=== PATIENT | male | born 1950 | race Caucasian/White ===

== ENCOUNTER → 2018-08-31 | Outpatient (CLI) | payer MEDICARE | END | disposition home or self-care (01) | LOC: CVU 07:46 | PROVIDERS: ATTEND Internal Medicine Cardiovascular Disease | DX: I25.10 Atherosclerotic heart disease of native coronary artery without angina pectoris (principal); I35.8 Other nonrheumatic aortic valve disorders; I48.91 Unspecified atrial fibrillation; I25.2 Old myocardial infarction; Z87.891 Personal history of nicotine dependence; Z95.2 Presence of prosthetic heart valve | CPT/HCPCS: 93306 ==

== ENCOUNTER → 2018-10-25 | Outpatient (CLI) | payer MEDICARE ==
[~2018-10-25] MED LIST: OMNIPAQUE 350 MG/ML, 100ML BOTTLE ONE
== END | disposition home or self-care (01) ==
LOC: CFH 09:53
PROVIDERS: ATTEND Internal Medicine
DX: D73.4 Cyst of spleen (principal); R59.1 Generalized enlarged lymph nodes; I25.10 Atherosclerotic heart disease of native coronary artery without angina pectoris; C83.10 Mantle cell lymphoma, unspecified site
CPT/HCPCS: 71260; 74177; 82565; Q9967

== ENCOUNTER 2019-05-02 11:05 | Outpatient (CLI) | payer MEDICARE ==
[2019-05-02] MEDS ORDERED: OMNIPAQUE 350 MG/ML, 100ML BOTTLE ONE (15:11)
== END 2019-05-02 23:59 | disposition home or self-care (01) ==
LOC: CFH 11:05
PROVIDERS: ATTEND Internal Medicine
DX: C83.10 Mantle cell lymphoma, unspecified site (principal); I70.0 Atherosclerosis of aorta; D73.4 Cyst of spleen; R59.1 Generalized enlarged lymph nodes
CPT/HCPCS: 71260; 74177; Q9967

== ENCOUNTER 2019-11-09 10:03 | Outpatient (CLI) | payer MEDICARE | END 2019-11-09 23:59 | disposition home or self-care (01) | LOC: CFH 10:03 | PROVIDERS: ATTEND Nurse Practitioner Family | DX: I72.3 Aneurysm of iliac artery (principal); I71.4 Abdominal aortic aneurysm, without rupture; I35.1 Nonrheumatic aortic (valve) insufficiency; I51.7 Cardiomegaly; Z95.2 Presence of prosthetic heart valve | CPT/HCPCS: 93306; 93978 ==

== ENCOUNTER → 2019-11-30 | Outpatient (CLI) | payer MEDICARE | END | disposition home or self-care (01) | LOC: CFH 10:21 | PROVIDERS: ATTEND Internal Medicine | DX: C83.10 Mantle cell lymphoma, unspecified site (principal); R59.9 Enlarged lymph nodes, unspecified | CPT/HCPCS: 71260; 74177; Q9967 ==

== ENCOUNTER 2020-05-23 16:04 | Emergency (ER) | payer MEDICARE ==
[~2020-05-23] VITALS: Ht 182.9 cm; Wt 99.0 kg
[2020-05-23 16:16] VITALS: BP 137/70
--- NOTE | 2020-05-23 16:24 | NUR ---
PT to room from triage.
[2020-05-23] MEDS ORDERED: hydrOXyzine 50MG TABLET ONE (17:03)
--- NOTE | 2020-05-23 17:10 | NUR ---
Pt medicated per MAR, states ready for dc.
[2020-05-23] MEDS ORDERED: hydrOXyzine 10MG TABLET PO ONE (17:30)
== END 2020-05-23 17:23 | disposition home or self-care (01) ==
LOC: ED 16:30
DX: R21 Rash and other nonspecific skin eruption (principal); Z85.828 Personal history of other malignant neoplasm of skin
CPT/HCPCS: 99283

== ENCOUNTER 2021-05-16 11:02 | Inpatient (IN) | payer MEDICARE ==
[~2021-05-16] VITALS: Ht 182.9 cm; Wt 91.9 kg
[2021-05-16] VITALS (7 sets, daily range): BP systolic 103–121; BP diastolic 60–73
[2021-05-16] MEDS ORDERED: PANTOPRAZOLE 80 MG in SODIUM CHLORIDE 0.9% 50 ML IVPB ONE (12:00)
[2021-05-16] MEDS ORDERED: SODIUM CHLORIDE FLUSH 10ML SYR IVF ONE (12:00)
[2021-05-16] MEDS ORDERED: SODIUM CHLORIDE 0.9% 1,000 ML IV ONE (12:00)
--- NOTE | 2021-05-16 12:00 | NUR ---
PT PLACED ON ALL ROOM MONITORING. IV PLACED, LABS DRAWN WITH START INCLUDING T&S. CALL LIGHT WITHIN REACH, WARM BLANKET PROVIDED, AT BS.
[2021-05-16 12:04] LABS: BASOPHILS % (AUTO) 1 % (0-1); EOSINOPHILS % (AUTO) 2 % (1-7); LYMPHOCYTES % (AUTO) 33 % (22-44); MEAN CORPUSCULAR HEMOGLOBIN 27.8 pg (27.5-34.5); MEAN CORPUSCULAR HGB CONC 33.3 g/dL (33.2-36.2); MEAN PLATELET VOLUME 8.2 fL (7.4-10.4); MONOCYTES % (AUTO) 10 % (2-9); NEUTROPHILS % (AUTO) 54 % (42-75); PLATELET COUNT 120 x10^3/uL (130-400); RED BLOOD COUNT 2.69 x10^6/uL (4.38-5.82); RED CELL DISTRIBUTION WIDTH 15.6 % (9.4-14.8)
[2021-05-16 12:16] LABS: ALANINE AMINOTRANSFERASE 17 U/L (12-78); ANION GAP 8 mmol/L (5-15); CALCIUM 8.6 mg/dL (8.5-10.1); CHLORIDE 108 mmol/L (98-107); CREATININE 1.18 mg/dL (0.7-1.3); INTERNATIONAL NORMALIZED RATIO 1.02 (0.93-1.1); PROTHROMBIN TIME 10.9 Seconds (9.6-11.5)
[2021-05-16 12:18] LABS: ALKALINE PHOSPHATASE 62 U/L (45-117); BILIRUBIN,TOTAL 0.3 mg/dL (0.2-1.0); TOTAL PROTEIN 6.4 g/dL (6.4-8.2)
[2021-05-16] MEDS ORDERED: PANTOPRAZOLE 40 MG IV ONE (12:24)
[2021-05-16] MEDS ORDERED: ATOR40TA78 PO (13:04)
[2021-05-16] MEDS ORDERED: AMLO-150 PO (13:04)
[2021-05-16] MEDS ORDERED: CARV6.252 PO (13:04)
--- NOTE | 2021-05-16 13:12 | NUR ---
REPORT TO IVAN RN, PT READY FOR TRANSPORT. CALL FROM BLOOD BANK STATING BLOOD READY. ROS LOVE AGREES TO START TRANSFUSION ONCE PT ARRIVED TO ADMIT BED. IVAN ALSO INFORMED OF NEED FOR PROTONIX GTT NOT RECEIVED YET FROM PHARMACY.
[2021-05-16] MEDS: SODIUM CHLORIDE 0.9% 1,000 ML IV SCH (14:30)
[2021-05-16] MEDS ORDERED: ONDANSETRON 2MG/ML, 2ML IVPush PRN (14:30)
[2021-05-16] MEDS: PANTOPRAZOLE 80 MG in SODIUM CHLORIDE 0.9% 100 ML IV SCH (14:48)
[2021-05-16] MEDS: MOVIPREP POWDER 1 PREP KIT PO SCH ×2 (18:09→22:00)
[2021-05-16] MEDS: CARVEDILOL 6.25 MG TABLET PO SCH (18:11)
[2021-05-17] VITALS (8 sets, daily range): BP systolic 90–104; BP diastolic 52–66
[2021-05-17] MEDS: PANTOPRAZOLE 80 MG in SODIUM CHLORIDE 0.9% 100 ML IV SCH ×2 (01:58→14:48)
[2021-05-17] MEDS: SODIUM CHLORIDE 0.9% 1,000 ML IV SCH ×2 (03:24→17:10)
[2021-05-17] MEDS: ACETAMINOPHEN 325 MG TABLET PO PRN ×3 (04:30→16:12)
[2021-05-17] MEDS: MOVIPREP POWDER 1 PREP KIT PO SCH (04:30)
[2021-05-17 05:36] LABS: BASOPHILS % (AUTO) 1 % (0-1); EOSINOPHILS % (AUTO) 2 % (1-7); LYMPHOCYTES % (AUTO) 33 % (22-44); MEAN CORPUSCULAR HEMOGLOBIN 28.8 pg (27.5-34.5); MEAN CORPUSCULAR HGB CONC 33.9 g/dL (33.2-36.2); MEAN PLATELET VOLUME 8.3 fL (7.4-10.4); MONOCYTES % (AUTO) 16 % (2-9); NEUTROPHILS % (AUTO) 47 % (42-75); PLATELET COUNT 102 x10^3/uL (130-400); RED BLOOD COUNT 2.49 x10^6/uL (4.38-5.82); RED CELL DISTRIBUTION WIDTH 15.9 % (9.4-14.8)
[2021-05-17 05:41] LABS: ALBUMIN 2.7 g/dL (3.4-5.0); ANION GAP 6 mmol/L (5-15); CALCIUM 8.1 mg/dL (8.5-10.1); CHLORIDE 113 mmol/L (98-107)
[2021-05-17 05:53] LABS: ALANINE AMINOTRANSFERASE 16 U/L (12-78); ALKALINE PHOSPHATASE 55 U/L (45-117); BILIRUBIN,TOTAL 0.4 mg/dL (0.2-1.0); CREATININE 1.16 mg/dL (0.7-1.3); TOTAL PROTEIN 5.5 g/dL (6.4-8.2)
[2021-05-17] MEDS: CARVEDILOL 6.25 MG TABLET PO SCH ×2 (06:01→18:46)
[2021-05-17] MEDS ORDERED: FENTANYL PF 100 MCG/2ML ONE ×2 (08:33→09:26)
[2021-05-17] MEDS ORDERED: PROPOFOL 50 ML ONE ×2 (08:54)
[2021-05-17] MEDS ORDERED: hydrALAzine 20 MG/ML, 1ML IV PRN (09:00)
[2021-05-17] MEDS ORDERED: FENTANYL PF 100 MCG/2ML IV PRN (09:00)
[2021-05-17] MEDS ORDERED: OXYcodone 5 MG/5 ML ORAL.SOL UDC PO PRN (09:00)
[2021-05-17] MEDS ORDERED: PROMETHAZINE 25 MG/ML, 1ML IVPush PRN (09:00)
[2021-05-17] MEDS ORDERED: LABETALOL 5MG/ML, 20ML IV PRN (09:00)
[2021-05-17] MEDS ORDERED: EPHEDRINE 50 MG/ML, 1ML IVPush PRN (09:00)
[2021-05-17] MEDS ORDERED: MEPERIDINE/PF 25MG/0.5ML IVPush PRN (09:00)
[2021-05-17] MEDS ORDERED: ACETAMINOPHEN 325 MG TABLET PO PRN (09:00)
[2021-05-17] MEDS ORDERED: METHOCARBAMOL 1,000 MG in DEXTROSE 5% 100 ML IV PRN (09:00)
[2021-05-17] MEDS ORDERED: LORazepam 2 MG/ML, 1ML IVPush PRN (09:00)
[2021-05-17] MEDS ORDERED: ONDANSETRON 2MG/ML, 2ML IVPush PRN (09:00)
[2021-05-17] MEDS ORDERED: HYDROmorphone 1 MG/ML, 1ML INJ IVPush PRN (09:00)
[2021-05-17] MEDS ORDERED: EPINEPHRINE SYRINGE 0.1 MG/ML, 10ML ONE (11:30)
[2021-05-18 00:11] VITALS: BP 90/61
[2021-05-18 04:29] VITALS: BP 94/57
[2021-05-18 04:52] VITALS: BP 96/61
[2021-05-18] MEDS: PANTOPRAZOLE 80 MG in SODIUM CHLORIDE 0.9% 100 ML IV SCH (06:32)
[2021-05-18 07:24] VITALS: BP 99/63
[2021-05-18] MEDS: CARVEDILOL 6.25 MG TABLET PO SCH (07:37)
[2021-05-18 07:49] VITALS: BP 110/64
[2021-05-18] MEDS ORDERED: AMLODIPINE 5 MG TABLET PO SCH (09:00)
[2021-05-18] MEDS ORDERED: PANT40TA6 PO (11:08)
== END 2021-05-18 12:19 | disposition home or self-care (01) | DRG 378 ==
LOC: ED 11:42 → EDIP 12:26 → 4EST 13:14 → DCLOUNGE 05-18 12:09
PROVIDERS: ADMIT Hospitalist; ATTEND Hospitalist
PROC: 30233N1 Transfusion of Nonautologous Red Blood Cells into Peripheral Vein, Percutaneous Approach (ICD-10-PCS; 2021-05-16)
PROC: 0W3P8ZZ Control Bleeding in Gastrointestinal Tract, Via Natural or Artificial Opening Endoscopic (ICD-10-PCS; principal; 2021-05-17 09:00)
DX: K26.4 Chronic or unspecified duodenal ulcer with hemorrhage (principal); D62 Acute posthemorrhagic anemia; D69.6 Thrombocytopenia, unspecified; Z20.822 Contact with and (suspected) exposure to COVID-19; R73.9 Hyperglycemia, unspecified; I10 Essential (primary) hypertension; E78.5 Hyperlipidemia, unspecified; Z79.899 Other long term (current) drug therapy; Z95.1 Presence of aortocoronary bypass graft; K20.90 Esophagitis, unspecified without bleeding; K63.5 Polyp of colon; D72.829 Elevated white blood cell count, unspecified; I25.10 Atherosclerotic heart disease of native coronary artery without angina pectoris; C44.90 Unspecified malignant neoplasm of skin, unspecified; Z80.0 Family history of malignant neoplasm of digestive organs; Z80.3 Family history of malignant neoplasm of breast; Z80.6 Family history of leukemia
CPT/HCPCS: 36415; 36430; 71045; 80053; 82728; 83540; 83550; 83735; 84100; 84443; 85014; 85018; 85025; 85610; 86850; 86900; 86923; 87635; 88305; 93005; 96365; 99291; G0378; J2704; J3010; C9113; J7030; P9016

== ENCOUNTER 2021-07-14 10:21 | Inpatient (IN) | payer MEDICARE ==
[2021-07-14] VITALS (7 sets, daily range): BP systolic 89–111; BP diastolic 55–70
[~2021-07-14] VITALS: Ht 182.9 cm; Wt 101.1 kg
[~2021-07-14 10:21] MED LIST changes: +AMLO-150 PO; +ATOR40TA78 PO; +CARV6.252 PO; +MISO100T2 PO; +OMEP-110 PO; -OMNIPAQUE 350 MG/ML, 100ML BOTTLE ONE; +PANT40TA6 PO; +SUCR1TAB33 PO
--- NOTE | 2021-07-14 11:07 | NUR ---
REQUEST TO PHARMACY FOR PROTONIX.
[2021-07-14] MEDS ORDERED: ONDANSETRON 2MG/ML, 2ML ONE ×2 (11:10→17:08)
[2021-07-14 11:33] LABS: BASOPHILS % (AUTO) 1 % (0-1); EOSINOPHILS % (AUTO) 2 % (1-7); LYMPHOCYTES % (AUTO) 21 % (22-44); MEAN CORPUSCULAR HEMOGLOBIN 27.3 pg (27.5-34.5); MEAN CORPUSCULAR HGB CONC 32.1 g/dL (33.2-36.2); MEAN PLATELET VOLUME 8.9 fL (7.4-10.4); MONOCYTES % (AUTO) 9 % (2-9); NEUTROPHILS % (AUTO) 68 % (42-75); PLATELET COUNT 136 x10^3/uL (130-400); RED BLOOD COUNT 2.88 x10^6/uL (4.38-5.82); RED CELL DISTRIBUTION WIDTH 19.6 % (9.4-14.8)
[2021-07-14 11:45] LABS: INTERNATIONAL NORMALIZED RATIO 1.08 (0.93-1.1); PROTHROMBIN TIME 11.5 Seconds (9.6-11.5)
[2021-07-14 11:47] LABS: ALBUMIN 2.8 g/dL (3.4-5.0); ANION GAP 7 mmol/L (5-15); CALCIUM 8.3 mg/dL (8.5-10.1); CHLORIDE 108 mmol/L (98-107)
--- NOTE | 2021-07-14 11:50 | NUR ---
CATRACHO TEST WALKED TO LAB.
[2021-07-14 11:51] LABS: CREATININE 1.19 mg/dL (0.7-1.3)
[2021-07-14 11:52] LABS: ALANINE AMINOTRANSFERASE 14 U/L (12-78); ALKALINE PHOSPHATASE 61 U/L (45-117); BILIRUBIN,TOTAL 0.8 mg/dL (0.2-1.0); TOTAL PROTEIN 5.8 g/dL (6.4-8.2)
[2021-07-14] MEDS ORDERED: ONDANSETRON 2MG/ML, 2ML IVPush ONE (12:00)
[2021-07-14] MEDS ORDERED: PANTOPRAZOLE 80 MG in SODIUM CHLORIDE 0.9% 100 ML IV SCH (12:00)
[2021-07-14] MEDS ORDERED: SODIUM CHLORIDE 0.9% 1,000 ML IV ONE ×2 (12:00→13:30)
[2021-07-14] MEDS ORDERED: SODIUM CHLORIDE 0.9% 1,000ML IVBOLUS ONE (12:00)
[2021-07-14] MEDS ORDERED: PANTOPRAZOLE 80 MG in SODIUM CHLORIDE 0.9% 50 ML IVPB ONE (12:00)
[2021-07-14] MEDS ORDERED: SODIUM CHLORIDE FLUSH 10ML SYR IVF ONE (12:00)
--- NOTE | 2021-07-14 12:01 | NUR ---
PT RESTING RECLINED BUT SITTING IN BED, RESPIRATIONS EVEN AND UNLABORED ON NC. IVF INFUSING PER EMAR. AWAITING TYPE AND SCREEN ALONG WITH H&H PRIOR TO BLOOD ADMINISTRATION. CONSENT SIGNED FOR TRANSFUSION. BLANKET AND BEARPAW WARMER APPLIED FOR PT COMFORT. LIGHTS DIMMED, CURTAINS CLOSED. SIDE RAILS UP, CALL LIGHT IN REACH. REMAINS AT BEDSIDE.
[2021-07-14 12:07] LABS: PARTIAL THROMBOPLASTIN TIME < 23 Seconds (25-31)
--- NOTE | 2021-07-14 12:10 | NUR ---
PURPLE SLIP SENT FOR BLOOD.
--- NOTE | 2021-07-14 12:36 | NUR ---
BLOOD STARTED WITH 2 RNS VERIFIED. AT BEDSIDE. HOSPITALIST AT BEDSIDE FOR ASSESSMENT. NAD NOTED IN PT AT THIS TIME.
[2021-07-14] MEDS ORDERED: PROMETHAZINE 25 MG/ML, 1ML IM PRN (13:00)
[2021-07-14] MEDS ORDERED: ENALAPRILAT 1.25 MG/ML, 2ML IVPush PRN (13:00)
[2021-07-14] MEDS ORDERED: hydrALAzine 20 MG/ML, 1ML IVPush PRN (13:00)
[2021-07-14] MEDS ORDERED: LABETALOL 5MG/ML, 20ML IVPush PRN (13:00)
[2021-07-14] MEDS ORDERED: ONDANSETRON 2MG/ML, 2ML IV PRN ×2 (13:00→23:00)
[2021-07-14] MEDS ORDERED: BISACODYL 10 MG SUPP PR PRN (13:00)
[2021-07-14] MEDS ORDERED: ACETAMINOPHEN 325 MG TABLET PO PRN (13:00)
[2021-07-14] MEDS ORDERED: ACETAMINOPHEN 650 MG SUPP PR PRN (13:00)
[2021-07-14] MEDS ORDERED: ONDANSETRON 2MG/ML, 2ML IVPush PRN ×2 (13:00→20:00)
[2021-07-14] MEDS ORDERED: DOCUSATE 100 MG CAPSULE PO PRN (13:00)
--- NOTE | 2021-07-14 13:16 | NUR ---
REPORT TO NAYA MCGINNIS RN. FIRST ATTEMPT TO CALL REPORT TO TELE 2 RN.
[2021-07-14] MEDS ORDERED: SODIUM CHLORIDE FLUSH 10ML SYR IVF PRN (13:30)
[2021-07-14] MEDS ORDERED: OMNIPAQUE 350 MG/ML, 100ML BOTTLE ONE (13:59)
[2021-07-14] MEDS ORDERED: MIDAZOLAM 1 MG/ML, 2ML ONE (16:59)
[2021-07-14] MEDS ORDERED: MISOPROSTOL 25 MCG TABLET PO SCH (17:00)
[2021-07-14] MEDS ORDERED: FENTANYL PF 250 MCG/5ML ONE (17:00)
[2021-07-14] MEDS ORDERED: ROCURONIUM 10 MG/ML,10ML ONE (17:08)
[2021-07-14] MEDS ORDERED: SUGAMMADEX 200 MG/2 ML IVPush ONE (17:08)
[2021-07-14] MEDS ORDERED: CEFAZOLIN 1,000 MG ONE (17:08)
[2021-07-14] MEDS ORDERED: PROPOFOL 10 MG/ML, 20ML ONE (17:08)
[2021-07-14] MEDS ORDERED: SUCCINYLCHOLINE 20 MG/ML, 10ML ONE (17:08)
[2021-07-14] MEDS ORDERED: ALBUMIN HUMAN 5% 500 ML ONE (17:35)
[2021-07-14] MEDS: SODIUM CHLORIDE 0.9% 1,000 ML IV SCH (19:00)
[2021-07-14] MEDS ORDERED: ALBUTEROL SULFATE 2.5 MG/3 ML NPPB PRN (20:00)
[2021-07-14] MEDS ORDERED: HYDROmorphone 2 MG/ML, 1ML ONE (20:00)
[2021-07-14] MEDS ORDERED: hydrALAzine 20 MG/ML, 1ML IV PRN (20:00)
[2021-07-14] MEDS ORDERED: METOCLOPRAMIDE 5 MG/ML, 2ML IV PRN (20:00)
[2021-07-14] MEDS ORDERED: KETOROLAC 30 MG/1 ML IV PRN (20:00)
[2021-07-14] MEDS ORDERED: DIAZEPAM 5 MG/ML, 2ML IV PRN ×2 (20:00)
[2021-07-14] MEDS ORDERED: LABETALOL 5MG/ML, 20ML IV PRN (20:00)
[2021-07-14] MEDS ORDERED: OXYcodone 5 MG/5 ML ORAL.SOL UDC PO PRN (20:00)
[2021-07-14] MEDS ORDERED: PROMETHAZINE 25 MG/ML, 1ML IV PRN (20:00)
[2021-07-14] MEDS ORDERED: FENTANYL PF 100 MCG/2ML ONE (20:00)
[2021-07-14] MEDS ORDERED: MEPERIDINE/PF 25MG/0.5ML IVPush PRN (20:00)
[2021-07-14] MEDS ORDERED: HYDROmorphone PCA 30 MG/30 ML IV PRN (20:00)
[2021-07-14] MEDS: FENTANYL PF 100 MCG/2ML IV PRN ×2 (20:01→20:10)
[2021-07-14] MEDS: HYDROmorphone 1 MG/ML, 1ML INJ IV PRN ×3 (20:15→20:25)
[2021-07-14] MEDS: CARVEDILOL 6.25 MG TABLET PO SCH (22:34)
[2021-07-14] MEDS: ATORVASTATIN 40 MG TABLET PO SCH (22:34)
[2021-07-14] MEDS: SUCRALFATE 1 GM/10 ML UDC PO SCH (22:35)
[2021-07-14] MEDS ORDERED: TRAZODONE 50MG TABLET PO PRN (23:00)
[2021-07-14] MEDS ORDERED: DIPHENHYDRAMINE 25 MG CAPSULE PO PRN (23:00)
[2021-07-14] MEDS ORDERED: LORazepam 2 MG/ML, 1ML IVPush PRN (23:00)
[2021-07-14] MEDS ORDERED: DEXAMETHASONE 4 MG/ML, 1ML IVPush PRN (23:00)
[2021-07-14] MEDS ORDERED: CALCIUM CARBONATE 500 MG TAB.CHEW PO PRN (23:00)
[2021-07-14] MEDS ORDERED: DIPHENHYDRAMINE 50 MG/ML, 1ML IVPush PRN (23:00)
[2021-07-14] MEDS ORDERED: HALOPERIDOL 5 MG/ML IVPush PRN (23:00)
[2021-07-14] MEDS ORDERED: LORazepam 1MG TABLET PO PRN (23:00)
[2021-07-14] MEDS ORDERED: SCOPOLAMINE PATCH, 1.5MG PATCH.TD72 TD PRN (23:00)
[2021-07-14] MEDS: ACETAMINOPHEN 500 MG TABLET PO SCH (23:37)
[2021-07-15 02:52] VITALS: BP 114/73
[2021-07-15] MEDS: SODIUM CHLORIDE 0.9% 1,000 ML IV SCH ×3 (02:59→19:00)
[2021-07-15 03:16] LABS: BASOPHILS % (AUTO) 1 % (0-1); EOSINOPHILS % (AUTO) 0 % (1-7); LYMPHOCYTES % (AUTO) 14 % (22-44); MEAN PLATELET VOLUME 8.1 fL (7.4-10.4); MONOCYTES % (AUTO) 10 % (2-9); NEUTROPHILS % (AUTO) 75 % (42-75); PLATELET COUNT 99 x10^3/uL (130-400); RED BLOOD COUNT 2.98 x10^6/uL (4.38-5.82); RED CELL DISTRIBUTION WIDTH 18.1 % (9.4-14.8)
[2021-07-15 03:26] LABS: ALANINE AMINOTRANSFERASE 20 U/L (12-78); ALBUMIN 2.6 g/dL (3.4-5.0); ANION GAP 7 mmol/L (5-15); CALCIUM 7.6 mg/dL (8.5-10.1); CHLORIDE 114 mmol/L (98-107); CREATININE 0.86 mg/dL (0.7-1.3)
[2021-07-15 03:29] LABS: ALKALINE PHOSPHATASE 47 U/L (45-117); BILIRUBIN,TOTAL 0.8 mg/dL (0.2-1.0); TOTAL PROTEIN 5.2 g/dL (6.4-8.2)
[2021-07-15] MEDS ORDERED: HYDROmorphone 2 MG/ML, 1ML ONE (04:30)
[2021-07-15] MEDS ORDERED: HYDROmorphone 1 MG/ML, 1ML INJ IV ONE (04:30)
[2021-07-15] MEDS: LACTATED RINGERS 1,000 ML IV SCH ×3 (04:39→22:01)
[2021-07-15] MEDS: CARVEDILOL 6.25 MG TABLET PO SCH ×2 (05:54→17:29)
[2021-07-15] MEDS: SUCRALFATE 1 GM/10 ML UDC PO SCH ×4 (05:54→22:00)
[2021-07-15] MEDS: ACETAMINOPHEN 500 MG TABLET PO SCH ×4 (05:54→22:01)
[2021-07-15 05:56] VITALS: BP 105/64
[2021-07-15 07:52] LABS: BASOPHILS % (AUTO) 1 % (0-1); EOSINOPHILS % (AUTO) 0 % (1-7); LYMPHOCYTES % (AUTO) 15 % (22-44); MEAN CORPUSCULAR HEMOGLOBIN 27.7 pg (27.5-34.5); MEAN CORPUSCULAR HGB CONC 32.1 g/dL (33.2-36.2); MEAN PLATELET VOLUME 8.5 fL (7.4-10.4); MONOCYTES % (AUTO) 9 % (2-9); NEUTROPHILS % (AUTO) 75 % (42-75); PLATELET COUNT 105 x10^3/uL (130-400); RED BLOOD COUNT 3.05 x10^6/uL (4.38-5.82); RED CELL DISTRIBUTION WIDTH 18.2 % (9.4-14.8)
[2021-07-15 07:59] VITALS: BP 113/68
[2021-07-15] MEDS: IRON SUCROSE COMPLEX 100MG/5ML IV SCH (09:13)
[2021-07-15] MEDS: PANTOPRAZOLE 40 MG IV IVPush SCH (09:13)
[2021-07-15] MEDS: ENOXAPARIN 40 MG/0.4 ML SQ SCH (09:13)
[2021-07-15] MEDS: AMLODIPINE 5 MG TABLET PO SCH (09:13)
[2021-07-15] MEDS: MISOPROSTOL 200 MCG TABLET PO SCH ×2 (09:14→17:42)
[2021-07-15] MEDS ORDERED: HYDROmorphone 1 MG/ML, 1ML INJ IV PRN (11:30)
[2021-07-15 12:16] VITALS: BP 107/69
[2021-07-15 19:12] VITALS: BP 108/70
[2021-07-15] MEDS: ATORVASTATIN 40 MG TABLET PO SCH (22:01)
[2021-07-16] VITALS (13 sets, daily range): BP systolic 103–138; BP diastolic 64–82
[2021-07-16] MEDS: SODIUM CHLORIDE 0.9% 1,000 ML IV SCH ×2 (03:00→11:00)
[2021-07-16 03:21] LABS: BASOPHILS % (AUTO) 1 % (0-1); EOSINOPHILS % (AUTO) 3 % (1-7); LYMPHOCYTES % (AUTO) 21 % (22-44); MEAN CORPUSCULAR HEMOGLOBIN 28.4 pg (27.5-34.5); MEAN CORPUSCULAR HGB CONC 33.1 g/dL (33.2-36.2); MEAN PLATELET VOLUME 8.2 fL (7.4-10.4); MONOCYTES % (AUTO) 11 % (2-9); NEUTROPHILS % (AUTO) 65 % (42-75); PLATELET COUNT 100 x10^3/uL (130-400)
[2021-07-16 03:27] LABS: ALBUMIN 2.2 g/dL (3.4-5.0); ANION GAP 6 mmol/L (5-15); CALCIUM 7.4 mg/dL (8.5-10.1); CHLORIDE 111 mmol/L (98-107); CREATININE 0.87 mg/dL (0.7-1.3)
[2021-07-16] MEDS: ACETAMINOPHEN 500 MG TABLET PO SCH ×3 (05:31→17:30)
[2021-07-16] MEDS: CARVEDILOL 6.25 MG TABLET PO SCH ×2 (05:31→17:30)
[2021-07-16] MEDS: LACTATED RINGERS 1,000 ML IV SCH ×3 (05:57→23:00)
[2021-07-16] MEDS: SUCRALFATE 1 GM/10 ML UDC PO SCH ×4 (08:45→20:37)
[2021-07-16] MEDS: PANTOPRAZOLE 40 MG IV IVPush SCH (08:46)
[2021-07-16] MEDS: ENOXAPARIN 40 MG/0.4 ML SQ SCH (08:46)
[2021-07-16] MEDS: IRON SUCROSE COMPLEX 100MG/5ML IV SCH (08:48)
[2021-07-16] MEDS: AMLODIPINE 5 MG TABLET PO SCH (08:53)
[2021-07-16] MEDS ORDERED: MAGNESIUM SULFATE PMX 2GM/50ML 50 ML IV ONE (09:00)
[2021-07-16] MEDS: MISOPROSTOL 200 MCG TABLET PO SCH ×2 (11:42→17:29)
[2021-07-16] MEDS: ATORVASTATIN 40 MG TABLET PO SCH (20:38)
[2021-07-17] MEDS: D5%-0.45NACL+KCL 20MEQ 1,000 ML IV SCH ×3 (00:09→14:32)
[2021-07-17] MEDS: ACETAMINOPHEN 500 MG TABLET PO SCH ×6 (00:12→23:00)
[2021-07-17 00:32] VITALS: BP 108/62
[2021-07-17 02:44] LABS: BASOPHILS % (AUTO) 0 % (0-1); EOSINOPHILS % (AUTO) 3 % (1-7); LYMPHOCYTES % (AUTO) 20 % (22-44); MEAN CORPUSCULAR HEMOGLOBIN 29.3 pg (27.5-34.5); MEAN CORPUSCULAR HGB CONC 33.6 g/dL (33.2-36.2); MEAN PLATELET VOLUME 8.5 fL (7.4-10.4); MONOCYTES % (AUTO) 10 % (2-9); NEUTROPHILS % (AUTO) 67 % (42-75); PLATELET COUNT 110 x10^3/uL (130-400); RED BLOOD COUNT 3.22 x10^6/uL (4.38-5.82)
[2021-07-17] MEDS: HYDROmorphone PCA 30 MG/30 ML IV PRN (02:52)
[2021-07-17 02:56] LABS: ANION GAP 4 mmol/L (5-15); CALCIUM 7.6 mg/dL (8.5-10.1); CHLORIDE 109 mmol/L (98-107); CREATININE 0.86 mg/dL (0.7-1.3)
[2021-07-17] MEDS: CARVEDILOL 6.25 MG TABLET PO SCH ×2 (05:16→18:12)
[2021-07-17] MEDS: LACTATED RINGERS 1,000 ML IV SCH (07:00)
[2021-07-17 07:51] LABS: BASOPHILS % (AUTO) 1 % (0-1); EOSINOPHILS % (AUTO) 4 % (1-7); LYMPHOCYTES % (AUTO) 21 % (22-44); MEAN CORPUSCULAR HEMOGLOBIN 28.6 pg (27.5-34.5); MEAN CORPUSCULAR HGB CONC 32.9 g/dL (33.2-36.2); MONOCYTES % (AUTO) 10 % (2-9); NEUTROPHILS % (AUTO) 64 % (42-75); PLATELET COUNT 116 x10^3/uL (130-400); RED BLOOD COUNT 3.47 x10^6/uL (4.38-5.82); RED CELL DISTRIBUTION WIDTH 19.2 % (9.4-14.8)
[2021-07-17 08:42] VITALS: BP 103/62
[2021-07-17] MEDS: PANTOPRAZOLE 40 MG IV IVPush SCH (08:49)
[2021-07-17] MEDS: ENOXAPARIN 40 MG/0.4 ML SQ SCH (08:49)
[2021-07-17] MEDS: MISOPROSTOL 200 MCG TABLET PO SCH ×2 (08:49→17:00)
[2021-07-17] MEDS: SUCRALFATE 1 GM/10 ML UDC PO SCH ×4 (08:49→20:51)
[2021-07-17] MEDS: AMLODIPINE 5 MG TABLET PO SCH (08:49)
[2021-07-17] MEDS: IRON SUCROSE COMPLEX 100MG/5ML IV SCH (08:50)
[2021-07-17 15:15] VITALS: BP 107/64
[2021-07-17 19:07] VITALS: BP 125/70
[2021-07-17 19:19] VITALS: BP 124/63
[2021-07-17] MEDS: ATORVASTATIN 40 MG TABLET PO SCH (20:51)
[2021-07-18] VITALS: BP 117/66
[2021-07-18] MEDS: HYDROmorphone PCA 30 MG/30 ML IV PRN (03:21)
[2021-07-18] MEDS: D5%-0.45NACL+KCL 20MEQ 1,000 ML IV SCH ×2 (03:21→18:32)
[2021-07-18] MEDS: SUCRALFATE 1 GM/10 ML UDC PO SCH ×4 (06:27→22:08)
[2021-07-18] MEDS: ACETAMINOPHEN 500 MG TABLET PO SCH ×3 (06:28→18:32)
[2021-07-18] MEDS: CARVEDILOL 6.25 MG TABLET PO SCH ×2 (06:28→18:11)
[2021-07-18 06:56] VITALS: BP 107/69
[2021-07-18] MEDS: AMLODIPINE 5 MG TABLET PO SCH (08:30)
[2021-07-18] MEDS: ENOXAPARIN 40 MG/0.4 ML SQ SCH (08:35)
[2021-07-18] MEDS: MISOPROSTOL 200 MCG TABLET PO SCH ×2 (08:35→16:59)
[2021-07-18] MEDS: PANTOPRAZOLE 40 MG IV IVPush SCH (08:35)
[2021-07-18 08:48] LABS: BASOPHILS % (AUTO) 1 % (0-1); EOSINOPHILS % (AUTO) 5 % (1-7); LYMPHOCYTES % (AUTO) 19 % (22-44); MEAN CORPUSCULAR HEMOGLOBIN 28.8 pg (27.5-34.5); MEAN PLATELET VOLUME 8.3 fL (7.4-10.4); MONOCYTES % (AUTO) 12 % (2-9); NEUTROPHILS % (AUTO) 63 % (42-75); PLATELET COUNT 102 x10^3/uL (130-400); RED BLOOD COUNT 3.51 x10^6/uL (4.38-5.82); RED CELL DISTRIBUTION WIDTH 19.8 % (9.4-14.8)
[2021-07-18 09:23] LABS: ANION GAP 4 mmol/L (5-15); CALCIUM 7.7 mg/dL (8.5-10.1); CHLORIDE 109 mmol/L (98-107); CREATININE 0.75 mg/dL (0.7-1.3)
[2021-07-18 12:49] VITALS: BP 104/68
[2021-07-18 18:10] VITALS: BP 115/68
[2021-07-18 18:18] VITALS: BP 116/72
[2021-07-18] MEDS ORDERED: SODIUM PHOSPHATE 10 MMOL in SODIUM CHLORIDE 0.9% 500 ML IV ONE (19:00)
[2021-07-18] MEDS: ATORVASTATIN 40 MG TABLET PO SCH (22:08)
[2021-07-19] MEDS: ACETAMINOPHEN 500 MG TABLET PO SCH ×4 (00:07→20:00)
[2021-07-19] MEDS: HYDROmorphone PCA 30 MG/30 ML IV PRN (00:13)
[2021-07-19 00:39] VITALS: BP 98/63
[2021-07-19 06:28] VITALS: BP 121/73
[2021-07-19] MEDS: CARVEDILOL 6.25 MG TABLET PO SCH ×2 (06:30→17:16)
[2021-07-19] MEDS: SUCRALFATE 1 GM/10 ML UDC PO SCH ×4 (06:30→21:23)
[2021-07-19 06:55] VITALS: BP 112/66
[2021-07-19] MEDS: MISOPROSTOL 200 MCG TABLET PO SCH ×2 (08:00→17:16)
[2021-07-19] MEDS: PANTOPRAZOLE 40 MG IV IVPush SCH (08:41)
[2021-07-19] MEDS: ENOXAPARIN 40 MG/0.4 ML SQ SCH (08:41)
[2021-07-19] MEDS: D5%-0.45NACL+KCL 20MEQ 1,000 ML IV SCH (13:56)
[2021-07-19 14:19] VITALS: BP 112/64
[2021-07-19 20:16] VITALS: BP 116/54
[2021-07-19] MEDS: ATORVASTATIN 40 MG TABLET PO SCH (21:24)
[2021-07-20 00:18] VITALS: BP 101/61
[2021-07-20] MEDS: D5%-0.45NACL+KCL 20MEQ 1,000 ML IV SCH (04:13)
[2021-07-20 05:32] VITALS: BP 114/70
[2021-07-20] MEDS: CARVEDILOL 6.25 MG TABLET PO SCH ×2 (05:32→17:04)
[2021-07-20 06:03] LABS: BASOPHILS % (AUTO) 1 % (0-1); EOSINOPHILS % (AUTO) 4 % (1-7); LYMPHOCYTES % (AUTO) 24 % (22-44); MEAN CORPUSCULAR HEMOGLOBIN 28.5 pg (27.5-34.5); MEAN CORPUSCULAR HGB CONC 32.8 g/dL (33.2-36.2); MEAN PLATELET VOLUME 8.3 fL (7.4-10.4); MONOCYTES % (AUTO) 11 % (2-9); NEUTROPHILS % (AUTO) 59 % (42-75); PLATELET COUNT 112 x10^3/uL (130-400); RED BLOOD COUNT 3.17 x10^6/uL (4.38-5.82); RED CELL DISTRIBUTION WIDTH 19.7 % (9.4-14.8)
[2021-07-20 06:08] LABS: CHLORIDE 109 mmol/L (98-107)
[2021-07-20 06:12] LABS: ANION GAP 5 mmol/L (5-15); CALCIUM 7.4 mg/dL (8.5-10.1); CREATININE 0.63 mg/dL (0.7-1.3)
[2021-07-20] MEDS: SUCRALFATE 1 GM/10 ML UDC PO SCH ×4 (06:46→21:57)
[2021-07-20 07:00] VITALS: BP 104/64
[2021-07-20] MEDS: PANTOPRAZOLE 40 MG IV IVPush SCH (08:42)
[2021-07-20] MEDS: MISOPROSTOL 200 MCG TABLET PO SCH ×2 (08:42→17:05)
[2021-07-20] MEDS: ENOXAPARIN 40 MG/0.4 ML SQ SCH (08:42)
[2021-07-20] MEDS ORDERED: POTASSIUM PHOSPHATE 44 MEQ in SODIUM CHLORIDE 0.9% 500 ML IV ONE (09:00)
[2021-07-20] MEDS ORDERED: D5%-0.45NACL+KCL 20MEQ 1,000 ML IV SCH (11:00)
[2021-07-20 13:05] VITALS: BP 108/69
[2021-07-20 17:05] VITALS: BP 131/79
[2021-07-20 19:46] VITALS: BP 107/68
[2021-07-20] MEDS: ATORVASTATIN 40 MG TABLET PO SCH (21:57)
[2021-07-21] MEDS: D5%-0.45NACL+KCL 20MEQ 1,000 ML IV SCH (00:13)
[2021-07-21 01:29] VITALS: BP 117/71
[2021-07-21 06:00] LABS: BASOPHILS % (AUTO) 1 % (0-1); EOSINOPHILS % (AUTO) 4 % (1-7); LYMPHOCYTES % (AUTO) 25 % (22-44); MEAN CORPUSCULAR HEMOGLOBIN 28.5 pg (27.5-34.5); MEAN CORPUSCULAR HGB CONC 32.7 g/dL (33.2-36.2); MEAN PLATELET VOLUME 8.3 fL (7.4-10.4); MONOCYTES % (AUTO) 12 % (2-9); NEUTROPHILS % (AUTO) 59 % (42-75); PLATELET COUNT 127 x10^3/uL (130-400); RED BLOOD COUNT 3.48 x10^6/uL (4.38-5.82); RED CELL DISTRIBUTION WIDTH 19.4 % (9.4-14.8)
[2021-07-21 06:06] LABS: CHLORIDE 109 mmol/L (98-107)
[2021-07-21 06:10] LABS: ANION GAP 4 mmol/L (5-15); CREATININE 0.74 mg/dL (0.7-1.3)
[2021-07-21 07:10] VITALS: BP 127/72
[2021-07-21] MEDS: SUCRALFATE 1 GM/10 ML UDC PO SCH ×4 (07:14→20:12)
[2021-07-21] MEDS: CARVEDILOL 6.25 MG TABLET PO SCH ×2 (07:14→17:07)
[2021-07-21] MEDS ORDERED: PANTOPRAZOLE 40MG TABLET PO SCH (07:27)
[2021-07-21] MEDS: PANTOPRAZOLE 40MG TABLET PO SCH (08:27)
[2021-07-21] MEDS: MISOPROSTOL 200 MCG TABLET PO SCH ×2 (08:27→17:07)
[2021-07-21] MEDS: ENOXAPARIN 40 MG/0.4 ML SQ SCH (08:28)
[2021-07-21] MEDS: SODIUM CHLORIDE FLUSH 3ML SYRINGE IVF SCH ×2 (08:46→20:12)
[2021-07-21 15:10] VITALS: BP 134/79
[2021-07-21 17:06] VITALS: BP 128/77
[2021-07-21 19:12] VITALS: BP 118/70
[2021-07-21] MEDS: ATORVASTATIN 40 MG TABLET PO SCH (20:12)
[2021-07-22 00:55] VITALS: BP 115/69
[2021-07-22] MEDS: CARVEDILOL 6.25 MG TABLET PO SCH (06:02)
[2021-07-22] MEDS: SUCRALFATE 1 GM/10 ML UDC PO SCH ×3 (06:06→16:55)
[2021-07-22 06:14] LABS: MEAN CORPUSCULAR HEMOGLOBIN 29.1 pg (27.5-34.5); MEAN CORPUSCULAR HGB CONC 33.3 g/dL (33.2-36.2); MEAN PLATELET VOLUME 8.5 fL (7.4-10.4); PLATELET COUNT 123 x10^3/uL (130-400); RED BLOOD COUNT 3.43 x10^6/uL (4.38-5.82); RED CELL DISTRIBUTION WIDTH 19.6 % (9.4-14.8)
[2021-07-22 06:25] LABS: CALCIUM 8.5 mg/dL (8.5-10.1); CHLORIDE 108 mmol/L (98-107)
[2021-07-22 06:27] LABS: ANION GAP 6 mmol/L (5-15); CREATININE 0.78 mg/dL (0.7-1.3)
[2021-07-22 06:46] LABS: BAND#(MANUAL) 0.06 x10^3/uL; BANDS%(MANUAL) 1 % (0-7); METAMYELOCYTES# (MANUAL) 0.06 x10^3/uL (0-0); METAMYELOCYTES% (MANUAL) 1 % (0-1); MONOS% (MANUAL) 9 % (2-9); REACTIVE LYMPHS # (MANUAL) 0.11 x10^3/uL (0-0); REACTIVE LYMPHS % (MANUAL) 2 % (0-0)
[2021-07-22 06:47] LABS: ANISOCYTOSIS 1+; EOS#(MANUAL) 0.22 x10^3/uL (0.0-0.4); EOS% (MANUAL) 4 % (1-7); LYMPH#(MANUAL) 1.34 x10^3/uL (1-3.4); LYMPHS% (MANUAL) 24 % (22-44); SEGS% (MANUAL) 59 % (42-75)
[2021-07-22 06:48] LABS: POLYCHROMASIA 1+; TEAR DROPS 1+
[2021-07-22 06:49] LABS: <PLATELET ESTIMATE> DECREASED; <PLT MORPHOLOGY> NORMAL PLT MORPH
[2021-07-22 06:57] VITALS: BP 110/67
[2021-07-22] MEDS: PANTOPRAZOLE 40MG TABLET PO SCH (08:04)
[2021-07-22] MEDS: ENOXAPARIN 40 MG/0.4 ML SQ SCH (08:04)
[2021-07-22] MEDS: MISOPROSTOL 200 MCG TABLET PO SCH (08:05)
[2021-07-22] MEDS: SODIUM CHLORIDE FLUSH 3ML SYRINGE IVF SCH (09:00)
[2021-07-22 13:20] VITALS: BP 128/73
[2021-07-22] MEDS ORDERED: TRAM50TA2 PO (14:51)
[2021-07-22] MEDS ORDERED: TRAZ50TA66 PO (14:51)
[2021-07-22] MEDS ORDERED: OXYC1TAB12 PO (14:51)
[2021-07-22] MEDS ORDERED: CLON0.25 PO (14:53)
== END 2021-07-22 17:38 | disposition home or self-care (01) | DRG 344 ==
LOC: ED 10:28 → 4WST 12:37 → 4NE 07-17 15:05
PROVIDERS: ADMIT Family Medicine; ATTEND Internal Medicine
PROC: 0DB90ZX Excision of Duodenum, Open Approach, Diagnostic (ICD-10-PCS; 2021-07-14)
PROC: 30233N1 Transfusion of Nonautologous Red Blood Cells into Peripheral Vein, Percutaneous Approach (ICD-10-PCS; 2021-07-14)
PROC: 0W3P0ZZ Control Bleeding in Gastrointestinal Tract, Open Approach (ICD-10-PCS; principal; 2021-07-14 18:00)
DX: K26.4 Chronic or unspecified duodenal ulcer with hemorrhage (principal); E43 Unspecified severe protein-calorie malnutrition; D62 Acute posthemorrhagic anemia; C83.10 Mantle cell lymphoma, unspecified site; R59.0 Localized enlarged lymph nodes; E66.9 Obesity, unspecified; E78.5 Hyperlipidemia, unspecified; I10 Essential (primary) hypertension; E83.39 Other disorders of phosphorus metabolism; I25.10 Atherosclerotic heart disease of native coronary artery without angina pectoris; Z85.828 Personal history of other malignant neoplasm of skin; Z87.891 Personal history of nicotine dependence; Z95.1 Presence of aortocoronary bypass graft; Z95.3 Presence of xenogenic heart valve; Z79.899 Other long term (current) drug therapy; Z68.30 Body mass index [BMI] 30.0-30.9, adult
CPT/HCPCS: 36415; 36430; 71045; 74018; 74174; 74240; 80048; 80053; 82040; 82962; 83735; 84100; 85014; 85018; 85025; 85610; 85730; 86850; 86900; 86923; 87635; 88305; 88341; 88342; 93005; 96365; 96375; G0378; J0690; J1170; J1650; J1756; J2250; J2405; J2704; J3010; P9045; Q9967; C1765; C9113; J0330; J3475; J3480; J7030; J7040; J7120; P9016

== ENCOUNTER 2021-08-10 11:59 | Inpatient (IN) | payer MEDICARE ==
[~2021-08-10] VITALS: Ht 182.9 cm; Wt 83.0 kg
[~2021-08-10 11:59] MED LIST changes: +CLON0.25 PO; +OXYC1TAB12 PO; +TRAM50TA2 PO; +TRAZ50TA66 PO
--- NOTE | 2021-08-10 12:14 | NUR ---
PT AMBULATED STEADILY TO ROOM FROM LOBBY, SENT BY [facility] "FOR BLOOD TRANSFUSION", DENIES PAIN, PT CHANGED INTO A GOWN, MONITORS IN PLACE, COMFORT MEASURES PROVIDED, AT BS, CALL LIGHT WITHIN REACH.
[2021-08-10 12:43] LABS: MEAN CORPUSCULAR HEMOGLOBIN 28.7 pg (27.5-34.5); MEAN CORPUSCULAR HGB CONC 33.2 g/dL (33.2-36.2); RED BLOOD COUNT 3.91 x10^6/uL (4.38-5.82); RED CELL DISTRIBUTION WIDTH 17.7 % (9.4-14.8)
[2021-08-10 12:55] LABS: ALANINE AMINOTRANSFERASE 18 U/L (12-78); ALBUMIN 2.9 g/dL (3.4-5.0); ANION GAP 5 mmol/L (5-15); CHLORIDE 108 mmol/L (98-107); CREATININE 1.27 mg/dL (0.7-1.3)
--- NOTE | 2021-08-10 13:02 | NUR ---
TASK RN NOTE: PT RESTING IN BED, SITTING UP. NAD NOTED AT THIS TIME. RESPIRATIONS EVEN AND UNLABORED.
[2021-08-10 13:15] LABS: ALKALINE PHOSPHATASE 67 U/L (45-117); BILIRUBIN,TOTAL 0.4 mg/dL (0.2-1.0); CALCIUM 8.4 mg/dL (8.5-10.1); PLATELET COUNT 8 x10^3/uL (130-400); TOTAL PROTEIN 6.9 g/dL (6.4-8.2)
[2021-08-10 13:17] LABS: BASOS#(MANUAL) 0.06 x10^3/uL (0-0.1); BASOS% (MANUAL) 1 % (0-1); EOS#(MANUAL) 0.23 x10^3/uL (0.0-0.4); EOS% (MANUAL) 4 % (1-7)
[2021-08-10 13:18] LABS: LYMPH#(MANUAL) 2.26 x10^3/uL (1-3.4); LYMPHS% (MANUAL) 39 % (22-44); MONOS#(MANUAL) 0.29 x10^3/uL (0.3-2.7); MONOS% (MANUAL) 5 % (2-9); SEG#(MANUAL) 2.96 x10^3/uL (1.8-6.8); SEGS% (MANUAL) 51 % (42-75)
[2021-08-10 13:19] LABS: <PLATELET ESTIMATE> DECREASED; LARGE PLATELETS 1+
[2021-08-10 13:20] LABS: ANISOCYTOSIS 1+; TEAR DROPS 1+
--- NOTE | 2021-08-10 15:00 | NUR ---
PT UPRIGHT ON GURNEY AWAKE & COMFORTABLE, WATCHING TV, RESPONDS APPROP TO STAFF, NAD, NO NEEDS AT THIS TIME, CALL LIGHT WITHIN REACH.
[2021-08-10 15:36] VITALS: BP 115/83
[2021-08-10 15:52] VITALS: BP 108/65
--- NOTE | 2021-08-10 16:02 | NUR ---
PT REMAINS UPRIGHT ON GURNEY AWAKE & COMFORTABLE, WATCHING TV, RESPONDS APPROP TO STAFF, NAD, COMFORT MEASURES PROVIDED, CALL LIGHT WITHIN REACH.
--- NOTE | 2021-08-10 16:03 | NUR ---
Pt to be admitted to ONC, room 444. Report called to ALFREDO SINCLAIR.
[2021-08-10 16:08] VITALS: BP 110/65
[2021-08-10 16:44] VITALS: BP 115/68
--- NOTE | 2021-08-10 16:48 | NUR ---
PT ASKED FOR FOOD WHILE THIS RN IN ROOM DOCUMENTING VS FOR BLOOD PRODUCT INFUSION, PT ASSURED THAT THE MD WOULD BE NOTIFIED OF PT REQUEST, 2 MINS LATER PT ASKED IF SHE "COULD JUST GET SOMETHING RIGHT NOW FROM THE [employer] OR SOMETHING", THIS RN REASSURED HER THAT THE REQUEST WOULD BE CONVEYED TO MD SOON THIS RN LEFT THE ROOM. DR GUEVARA IMMEDIATELY NOTIFIED OF PT REQUEST & FOOD WAS PROMPTLY ORDERED 'STAT'.
--- NOTE | 2021-08-10 17:05 | NUR ---
UPON ENTERING ROOM, PT VERY UPSET & YELLING AT DR CROWLEY ABOUT "YOU DRS ARE TALKING TO EVERYONE BUT ME, I WANT TO KNOW WHAT THE HELL YOU GUYS ARE DOING!" PLATELETS HAD COMPLETED INFUSING (WHICH PT TOLERATED WELL WO ADVERSE EFFECTS AT THIS TIME), PT CONTINUED YELLING AT DR CROWLEY REFUSING VS DESPITE ATTEMPT TO EDUCATE PT ON NEED TO MONITOR VS DURING/AFTER RECEIVING BLOOD PRODUCTS, PT MOTIONED TOWARDS THIS RN YELLING "AND THIS LADY NEARLY PULLS THE CHAIR OUT FROM UNDER MY ! I WAS READY TO SLAP HER!", THIS RN EXITED THE ROOM WHILE PT CONTINUED YELLING AT [facility].
--- NOTE | 2021-08-10 17:20 | NUR ---
DINNER TRAY GIVEN
[2021-08-10 17:35] VITALS: BP 125/74
[2021-08-10] MEDS ORDERED: OXYcodone/APAP 5/325MG TABLET PO PRN (18:30)
[2021-08-10] MEDS ORDERED: TRAZODONE 50MG TABLET PO PRN (18:30)
[2021-08-10 18:57] LABS: BASOPHILS % (AUTO) 1 % (0-1); EOSINOPHILS % (AUTO) 6 % (1-7); LYMPHOCYTES % (AUTO) 45 % (22-44); MEAN CORPUSCULAR HGB CONC 33.4 g/dL (33.2-36.2); MEAN PLATELET VOLUME 9.3 fL (7.4-10.4); MONOCYTES % (AUTO) 8 % (2-9); NEUTROPHILS % (AUTO) 40 % (42-75); RED BLOOD COUNT 3.58 x10^6/uL (4.38-5.82)
[2021-08-10] MEDS ORDERED: ONDANSETRON ODT 4 MG PO PRN (19:00)
[2021-08-10] MEDS ORDERED: BISACODYL 10 MG SUPP PR PRN (19:00)
[2021-08-10] MEDS ORDERED: PROMETHAZINE 25 MG/ML, 1ML IM PRN (19:00)
[2021-08-10] MEDS ORDERED: OXYcodone IR 5MG TABLET PO PRN (19:00)
[2021-08-10] MEDS ORDERED: morphine SULFATE 10 MG/ML, 1ML IVPush PRN (19:00)
[2021-08-10] MEDS ORDERED: DOCUSATE 100 MG CAPSULE PO PRN (19:00)
[2021-08-10] MEDS ORDERED: ONDANSETRON 2MG/ML, 2ML IVPush PRN (19:00)
[2021-08-10] MEDS ORDERED: hydrALAzine 20 MG/ML, 1ML IVPush PRN (19:00)
[2021-08-10] MEDS ORDERED: POLYETHYLENE GLYCOL 17 GM PACKET PO PRN (19:00)
[2021-08-10 19:25] VITALS: BP 120/76
[2021-08-10] MEDS: PANTOPRAZOLE 40 MG IV IVPush SCH (19:27)
[2021-08-10] MEDS: DEXAMETHASONE 40 MG in SODIUM CHLORIDE 0.9% 50 ML IV SCH (19:27)
[2021-08-10] MEDS: ACETAMINOPHEN 325 MG TABLET PO PRN (19:27)
[2021-08-10 19:31] LABS: PLATELET COUNT 18 x10^3/uL (130-400)
[2021-08-10] MEDS: MISOPROSTOL 200 MCG TABLET PO SCH (20:44)
[2021-08-10] MEDS: IMMUNE GLOBULIN 80 GM in VIAL 0 EACH IV SCH (20:44)
[2021-08-10] MEDS: CARVEDILOL 6.25 MG TABLET PO SCH (20:44)
[2021-08-10] MEDS: ATORVASTATIN 40 MG TABLET PO SCH (20:44)
[2021-08-11 00:28] VITALS: BP 127/80
[2021-08-11 05:46] LABS: BASOPHILS % (AUTO) 1 % (0-1); EOSINOPHILS % (AUTO) 0 % (1-7); LYMPHOCYTES % (AUTO) 33 % (22-44); MEAN CORPUSCULAR HEMOGLOBIN 28.9 pg (27.5-34.5); MEAN CORPUSCULAR HGB CONC 33.3 g/dL (33.2-36.2); MEAN PLATELET VOLUME 10.4 fL (7.4-10.4); MONOCYTES % (AUTO) 2 % (2-9); NEUTROPHILS % (AUTO) 64 % (42-75); RED BLOOD COUNT 3.36 x10^6/uL (4.38-5.82); RED CELL DISTRIBUTION WIDTH 17.4 % (9.4-14.8)
[2021-08-11 05:49] LABS: PLATELET COUNT 15 x10^3/uL (130-400)
[2021-08-11 06:27] LABS: ALANINE AMINOTRANSFERASE 16 U/L (12-78); ALBUMIN 2.4 g/dL (3.4-5.0); ANION GAP 6 mmol/L (5-15); CALCIUM 7.9 mg/dL (8.5-10.1); CHLORIDE 107 mmol/L (98-107); CREATININE 1.04 mg/dL (0.7-1.3)
[2021-08-11 06:36] LABS: ALKALINE PHOSPHATASE 62 U/L (45-117); BILIRUBIN,TOTAL 0.5 mg/dL (0.2-1.0); CHOLESTEROL, TOTAL 87 mg/dL (140-239); HDL CHOL % 25 % (26-37); HDL CHOLESTEROL (DIRECT) 22 mg/dL (40-60); LDL CHOLESTEROL,CALCULATED 50 mg/dL (54-169); LDL/HDL RATIO 2.3 (0.5-3.0); TOTAL PROTEIN 7.4 g/dL (6.4-8.2); TRIGLYCERIDES 76 mg/dL (50-200); VLDL CHOLESTEROL 15 mg/dL (0-25)
[2021-08-11] MEDS ORDERED: PANTOPRAZOLE 40MG TABLET PO SCH (07:00)
[2021-08-11 08:00] VITALS: BP 111/71
[2021-08-11] MEDS ORDERED: MAGNESIUM SULFATE PMX 4GM/100M 100 ML IVPB ONE (09:00)
[2021-08-11] MEDS: CARVEDILOL 6.25 MG TABLET PO SCH ×2 (09:07→21:54)
[2021-08-11] MEDS: PANTOPRAZOLE 40 MG IV IVPush SCH ×2 (09:07→19:37)
[2021-08-11] MEDS: AMLODIPINE 5 MG TABLET PO SCH (09:07)
[2021-08-11] MEDS: MISOPROSTOL 200 MCG TABLET PO SCH ×2 (09:07→17:07)
[2021-08-11 15:45] VITALS: BP 120/79
[2021-08-11] MEDS: ACETAMINOPHEN 325 MG TABLET PO PRN (17:07)
[2021-08-11 18:56] VITALS: BP 106/65
[2021-08-11 19:31] LABS: BASOPHILS % (AUTO) 0 % (0-1); EOSINOPHILS % (AUTO) 0 % (1-7); LYMPHOCYTES % (AUTO) 23 % (22-44); MEAN CORPUSCULAR HEMOGLOBIN 28.7 pg (27.5-34.5); MEAN CORPUSCULAR HGB CONC 33.5 g/dL (33.2-36.2); MEAN PLATELET VOLUME 11.7 fL (7.4-10.4); MONOCYTES % (AUTO) 10 % (2-9); NEUTROPHILS % (AUTO) 67 % (42-75); RED BLOOD COUNT 3.43 x10^6/uL (4.38-5.82); RED CELL DISTRIBUTION WIDTH 17.9 % (9.4-14.8)
[2021-08-11] MEDS: DEXAMETHASONE 40 MG in SODIUM CHLORIDE 0.9% 50 ML IV SCH (19:38)
[2021-08-11 19:44] LABS: PLATELET COUNT 32 x10^3/uL (130-400)
[2021-08-11 20:27] LABS: OVALOCYTES 1+; POLYCHROMASIA 1+; TEAR DROPS 1+
[2021-08-11 20:28] LABS: <PLATELET ESTIMATE> DECREASED; ANISOCYTOSIS 1+
[2021-08-11] MEDS: IMMUNE GLOBULIN 80 GM in VIAL 0 EACH IV SCH (21:43)
[2021-08-11] MEDS: ATORVASTATIN 40 MG TABLET PO SCH (21:47)
[2021-08-12 00:10] VITALS: BP 94/57
[2021-08-12 07:28] VITALS: BP 93/60
[2021-08-12] MEDS: CARVEDILOL 6.25 MG TABLET PO SCH (08:11)
[2021-08-12] MEDS: AMLODIPINE 5 MG TABLET PO SCH (08:11)
[2021-08-12] MEDS: MISOPROSTOL 200 MCG TABLET PO SCH (08:22)
[2021-08-12] MEDS: PANTOPRAZOLE 40 MG IV IVPush SCH (08:22)
[2021-08-12 09:46] LABS: BASOPHILS % (AUTO) 0 % (0-1); EOSINOPHILS % (AUTO) 0 % (1-7); LYMPHOCYTES % (AUTO) 16 % (22-44); MEAN CORPUSCULAR HGB CONC 33.6 g/dL (33.2-36.2); MEAN PLATELET VOLUME 10.2 fL (7.4-10.4); MONOCYTES % (AUTO) 4 % (2-9); NEUTROPHILS % (AUTO) 80 % (42-75); RED CELL DISTRIBUTION WIDTH 17.7 % (9.4-14.8)
[2021-08-12 09:52] LABS: PLATELET COUNT 47 x10^3/uL (130-400)
[2021-08-12] MEDS ORDERED: DEXA4TAB66 PO (11:47)
[2021-08-12] MEDS ORDERED: PANT40TA6 PO (11:47)
== END 2021-08-12 14:24 | disposition home or self-care (01) | DRG 813 ==
LOC: ED 12:05 → EDIP 14:43 → 4NW 17:20
PROVIDERS: ADMIT Internal Medicine; ATTEND Internal Medicine
PROC: 30233R1 Transfusion of Nonautologous Platelets into Peripheral Vein, Percutaneous Approach (ICD-10-PCS; principal; 2021-08-10)
DX: D69.3 Immune thrombocytopenic purpura (principal); C83.10 Mantle cell lymphoma, unspecified site; D69.6 Thrombocytopenia, unspecified; D64.9 Anemia, unspecified; E78.5 Hyperlipidemia, unspecified; E88.09 Other disorders of plasma-protein metabolism, not elsewhere classified; I25.10 Atherosclerotic heart disease of native coronary artery without angina pectoris; I48.91 Unspecified atrial fibrillation; I10 Essential (primary) hypertension; Z80.0 Family history of malignant neoplasm of digestive organs; Z80.3 Family history of malignant neoplasm of breast; Z80.6 Family history of leukemia; Z85.828 Personal history of other malignant neoplasm of skin; Z87.891 Personal history of nicotine dependence; Z95.1 Presence of aortocoronary bypass graft; Z95.3 Presence of xenogenic heart valve
CPT/HCPCS: 36415; 80053; 80061; 82607; 83036; 83615; 83735; 84100; 84443; 84550; 85025; 86850; 86900; 96374; 96375; G0378; J1100; J1561; C9113; J3475; P9035